=== PATIENT | female | born 1975 | race Hispanic/Latino ===

== ENCOUNTER 2019-10-02 14:51 | Emergency (ER) | payer OTHER ==
[2019-10-02] MEDS ORDERED: ACETAMINOPHEN EXTRA STRENGTH 500 MG TABLET ONE (15:09)
[2019-10-02] MEDS ORDERED: OSELTAMIVIR PHOSPHATE 75 MG CAP ONE (15:10)
== END 2019-10-02 17:15 | disposition home or self-care (01) ==
LOC: EDH 14:51
DX: J11.1 Influenza due to unidentified influenza virus with other respiratory manifestations (principal); Z98.51 Tubal ligation status

== ENCOUNTER 2022-02-25 02:16 | Emergency (ER) | payer OTHER ==
[~2022-02-25] VITALS: Ht 152.4 cm; Wt 89.8 kg
[2022-02-25 02:48] LABS: BASOPHILS % (AUTO) 0.1 % (0.0-5.0); HEMATOCRIT 35.7 % (36-48); LYMPHOCYTES % (AUTO) 41.3 % (21.0-51.0); MEAN CORPUSCULAR HEMOGLOBIN 31.6 pg (27.0-33.0); MEAN CORPUSCULAR HGB CONC 34.7 g/dL (32.0-36.0); MEAN CORPUSCULAR VOLUME 90.8 fL (79-99); MONOCYTES % (AUTO) 5.3 % (3.0-13.0); NEUTROPHILS % (AUTO) 53.2 % (40.0-77.0); PLATELET COUNT (AUTO) 215 K/uL (130-400); RED BLOOD CELL COUNT(AUTO) 3.93 MIL/uL (4.00-5.50); RED CELL DISTRIBUTION WIDTH 11.9 % (11.0-15.5); WHITE BLOOD COUNT (AUTO) 6.8 K/uL (4.8-10.8)
[2022-02-25 02:51] LABS: APPEARANCE,URINE CLEAR (CLEAR); BILIRUBIN,URINE NEGATIVE (NEGATIVE); COLOR,URINE YELLOW (YELLOW); GLUCOSE, URINE (UA) NEGATIVE (NEGATIVE); KETONES,URINE NEGATIVE (NEGATIVE); LEUKOCYTE ESTERASE ,URINE NEGATIVE (NEGATIVE); NITRATE,URINE NEGATIVE (NEGATIVE); OCCULT BLOOD,URINE NEGATIVE (NEGATIVE); PROTEIN,URINE NEGATIVE (NEGATIVE); UROBILINOGEN,URINE 0.2 mg/dL (0.2-1.0)
[2022-02-25 03:06] LABS: CREATININE 0.8 mg/dL (0.5-1.5); POTASSIUM 3.6 mmol/L (3.5-5.1)
[2022-02-25 03:11] LABS: ALBUMIN 3.6 g/dL (3.5-5.0); TOTAL PROTEIN, SERUM 7.6 g/dL (6.0-8.3)
[2022-02-25] MEDS ORDERED: ONDANSETRON 4MG INJ IVP ONE (05:00)
[2022-02-25] MEDS ORDERED: KETOROLAC 30MG VIAL (30MG/ML) IM ONE (05:00)
[2022-02-25] MEDS ORDERED: 0.9%NACL 1000ML 1,000 ML IV ONE (06:30)
[2022-02-25] MEDS ORDERED: DICY20TA2 PO (07:12)
[2022-02-25 07:22] VITALS: BP 110/64
== END 2022-02-25 07:33 | disposition home or self-care (01) ==
LOC: EDH 02:16
DX: K80.50 Calculus of bile duct without cholangitis or cholecystitis without obstruction (principal); G89.29 Other chronic pain; M54.50 Low back pain, unspecified; Z98.51 Tubal ligation status; Z79.1 Long term (current) use of non-steroidal anti-inflammatories (NSAID)
CPT/HCPCS: 99285; 96374; 76705; 96361; 84484; 80053; 83690; 85025; 81003; 81025; 36415; 93005; 96372; J7030; J2405; J1885

== ENCOUNTER 2023-07-02 03:09 | Emergency (ER) | payer OTHER ==
[~2023-07-02] VITALS: Ht 152.4 cm; Wt 89.1 kg
[~2023-07-02 03:09] MED LIST: DICY20TA2 PO
[2023-07-02] MEDS ORDERED: VALA10002 PO (04:12)
[2023-07-02] MEDS ORDERED: GABA300C PO (04:12)
[2023-07-02] MEDS ORDERED: IBUP-1493 PO (04:12)
[2023-07-02 04:30] VITALS: BP 154/90; PULSE 74; RESP 16; O2SAT 100
== END 2023-07-02 04:31 | disposition home or self-care (01) ==
LOC: EDH 03:09
DX: B02.9 Zoster without complications (principal); G62.9 Polyneuropathy, unspecified; R10.31 Right lower quadrant pain; Z90.710 Acquired absence of both cervix and uterus; Z98.890 Other specified postprocedural states